=== PATIENT | male | born 1950 | race Caucasian/White ===

== ENCOUNTER 2016-08-30 09:27 | Outpatient (CLI) | payer OTHER ==
--- NOTE | 2016-08-30 10:42 | US ---
EXAM: Digital bilateral diagnostic mammogram and right breast ultrasound. HISTORY: Nodule palpable behind the right nipple COMPARISON: None FINDINGS: Four views of the breasts were performed digitally and demonstrate parenchymal tissue pos terior to the right nipple. There is no focal nodule or calcification identified. The left breast demonstrates complete fatty tissue. Sonographic evaluation of the soft tissues posterior to the right nipple demonstrate normal sonograp hic appearance of breast parenchyma. No focal calcification or suspicious nodule is identified. IMPRESSION: Findings are consistent with right breast gynecomastia. RECOMMENDATION: No new follow-up is indicated by mammogram or ultrasound. If clinically patient pain worsens or pal pable nodule increases in size, follow-up evaluation may be obtained as clinically indicated. BIRADS category II: Benign findings
== END 2016-08-30 09:28 | disposition home or self-care (01) ==
LOC: RAD 09:27
PROVIDERS: ATTEND Family Medicine
DX: N64.4 Mastodynia (principal)

== ENCOUNTER 2017-10-23 06:52 | Day surgery (SDC) ==
[2017-10-23] MEDS ORDERED: VERSED ONE (09:15)
[2017-10-23] MEDS ORDERED: DIPRIVAN 20 ML VIAL IVP ONE (09:15)
[2017-10-23 13:55] VITALS: BP 143/73; TEMP 97.6
[2017-10-23] MEDS ORDERED: LIDOCAINE 1% 20 ML MDV ID STA (13:59)
--- NOTE | 2017-10-23 15:28 | OP ---
INDICATIONS FOR PROCEDURE: 67 year old gentleman presents for colonoscopy exam. He has history of adenomatous polyps with his last colonoscopy 5 years ago. There is also a family history of polyps. MEDICATIONS: SEE ANESTHESIA NOTES. PROCEDURE: COLONOSCOPY SNARE POLYPECTOMY. REPORT: The risks, benefits, alternatives and limitations were discussed in detail with the patient. Informed consent was obtained. After adequate sedation was achieved, a digital rectal exam revealed good tone, no masses. The colonoscope was introduced into the rectum and advanced under direct visual guidance to the cecum. The cecum was identified by the appendiceal orifice and IC valve. I then slowly the scope in circumferential manner and examined the mucosa quite carefully. I looked on the proximal and distal sides of folds and flexures as best as possible. I was able to retroflex the scope in the right colon and the left colon to increase visualization. In the ascending colon there was a sessile 6-7mm polyp that I removed by snare technique. There was moderate diverticulosis scattered throughout the descending and sigmoid colon. On retroflex view of the anal canal there was small engorged internal hemorrhoid veins. The prep was good and the withdraw time is 12 minutes and 0 seconds. The patient tolerated the procedure well with stable vital signs and pulse oximetry throughout. IMPRESSION: 1. Small polyp removed 2. Diverticulosis RECOMMENDATIONS: 1. High fiber diet 2. Office visit as needed 3. Await polyp pathology and if everything is benign as expected, I recommended repeat colonoscopy examination again in 5 years or sooner if there are signs of symptoms to indicate otherwise. CC: Dr. Az Deras. [facility]
== END 2017-10-23 11:00 | disposition home or self-care (01) ==
LOC: SURG 06:52
PROVIDERS: ATTEND Internal Medicine Gastroenterology
DX: Z09 Encounter for follow-up examination after completed treatment for conditions other than malignant neoplasm (principal); Z86.010 Personal history of colon polyps; D12.2 Benign neoplasm of ascending colon; K57.30 Diverticulosis of large intestine without perforation or abscess without bleeding; K64.8 Other hemorrhoids; Z83.71 Family history of colonic polyps

== ENCOUNTER 2019-01-03 11:15 | Outpatient (CLI) | payer OTHER ==
--- NOTE | 2019-01-03 13:09 | DI ---
EXAM: Right hand two-view HISTORY: Bilateral hand pain COMPARISON: None FINDINGS: No fracture or dislocation. Mild scattered osteophytic change throughout the hand with mi ld to moderate osteoarthritis third DIP joint. ))) Chondrocalcinosis in the triangular fibrocartilag e. Nonspecific calcification adjacent to the second PIP joint and could relate to chondrocalcinosis. Atherosclerotic vascular calcification.. IMPERSSION: 1. Osteoarthritis. 2. Chondrocalcinosis
--- NOTE | 2019-01-03 13:10 | DI ---
EXAM: Left hand two views HISTORY: Bilateral hand pain COMPARISON: None FINDINGS: No fracture or dislocation. Mild scattered osteophytic change throughout the hand, with j oint space narrowing osteophyte formation, with mild to moderate osteoarthritis second DIP joint.. C hondrocalcinosis triangular fibrocartilage. Ossifications adjacent to the third and fourth MCP joint s, nonspecific and could relate to chondrocalcinosis. Nonspecific calcification adjacent to the base of the second middle phalanx IMPERSSION: 1. Osteoarthritis. 2. Chondrocalcinosis
== END 2019-01-03 11:16 | disposition home or self-care (01) ==
LOC: RAD 11:15
PROVIDERS: ATTEND Family Medicine
DX: M79.642 Pain in left hand (principal); M79.641 Pain in right hand; M19.90 Unspecified osteoarthritis, unspecified site; M15.9 Polyosteoarthritis, unspecified